=== PATIENT | female | born 1945 | race Caucasian/White ===

== ENCOUNTER 2021-03-29 15:56 | Inpatient (IN) | payer MEDICARE, MEDICAID ==
[~2021-03-29] VITALS: Ht 154.9 cm; Wt 80.3 kg
[2021-03-29] MEDS ORDERED: APIXABAN 5 MG TABLET PO STA (16:36)
[2021-03-29] MEDS ORDERED: DILTIAZEM HCL 5MG/ML 5ML VIAL IV ONE (16:45)
[2021-03-29 17:28] LABS: HEMATOCRIT. 43.7 % (36.0-48.0); HEMOGLOBIN. 14.4 g/dL (12.0-16.0); MEAN CORPUSCULAR HEMOGLOBIN 31.5 pg (28.0-32.0); MEAN CORPUSCULAR VOLUME 95.4 fL (81.0-99.0); MEAN PLATELET VOLUME 9.2 fl (7.4-10.4); PLATELET 308 x1000/uL (130-400); RED BLOOD CELL COUNT 4.58 mill/uL (4.2-5.4); RED CELL DISTRIBUTION WIDTH 13.8 % (11.6-14.6)
[2021-03-29] MEDS ORDERED: FUROSEMIDE 40MG/4ML VIAL IVP NR (18:00)
[2021-03-29] MEDS ORDERED: DILTIAZEM HCL 120MG CAPSULE CD 24HR PO NR (18:00)
[2021-03-29 18:23] LABS: PLATELET ESTIMATE NORMAL
[2021-03-29 18:26] LABS: CHLORIDE 100 mEq/L (98-107)
[2021-03-29] MEDS ORDERED: GUAIFENESIN 200MG/10ML SUGAR FREE UDC PO PRN (18:30)
[2021-03-29] MEDS ORDERED: IPRATROPIUM/ALBUTEROL 0.5-3(2.5)MG/3ML NEB HHN PRN (18:30)
[2021-03-29] MEDS ORDERED: DOCUSATE SODIUM 100MG CAPSULE PO PRN (18:30)
[2021-03-29] MEDS ORDERED: TRAMADOL 50MG TABLET PO PRN (18:30)
[2021-03-29] MEDS ORDERED: ACETAMINOPHEN 325MG TABLET PO PRN (18:30)
[2021-03-29] MEDS ORDERED: NALOXONE HCL 0.4MG/ML VIAL IV PRN (18:45)
[2021-03-29] MEDS ORDERED: DEXTROSE 50% WATER 50ML SYRINGE IV PRN (18:45)
[2021-03-29] MEDS ORDERED: METOPROLOL TARTRATE 25MG TABLET PO SCH (20:00)
[2021-03-29] MEDS ORDERED: BLOOD SUGAR DIAGNOSTIC STRIP TEST SCH (21:00)
[2021-03-29] MEDS ORDERED: INSULIN LISPRO 100 UNITS/ML SUBCUT SCH (21:00)
[2021-03-29 22:55] VITALS: BP 136/78
[2021-03-30] MEDS ORDERED: ATEN-42 MT (07:05)
[2021-03-30] MEDS ORDERED: ENALAPRIL (07:05)
[2021-03-30] MEDS ORDERED: FURO20TA4 MT (07:07)
[2021-03-30] MEDS ORDERED: APIX2.5T MT (07:07)
[2021-03-30] MEDS ORDERED: APIX5TAB MT (07:07)
[2021-03-30 07:21] LABS: BASOPHILS % 0.4 % (0.0-2.0); EOSINOPHILS % 0.8 % (0.0-5.0); HEMATOCRIT. 42.2 % (36.0-48.0); LYMPHOCYTES % 7.8 % (20.0-50.0); MEAN CORPUSCULAR HEMOGLOBIN 31.6 pg (28.0-32.0); MEAN CORPUSCULAR VOLUME 95.5 fL (81.0-99.0); MEAN PLATELET VOLUME 9.1 fl (7.4-10.4); MONOCYTES % 13.1 % (2.0-8.0); NEUTROPHILS % 77.9 % (40.0-76.0); PLATELET 293 x1000/uL (130-400); RED BLOOD CELL COUNT 4.42 mill/uL (4.2-5.4); RED CELL DISTRIBUTION WIDTH 13.6 % (11.6-14.6)
[2021-03-30 08:00] VITALS: BP 113/60
[2021-03-30] MEDS ORDERED: APIXABAN 5 MG TABLET PO SCH (09:00)
[2021-03-30] MEDS ORDERED: ASPIRIN 81MG EC TABLET PO SCH (09:00)
[2021-03-30] MEDS ORDERED: METOPROLOL TARTRATE 50MG TABLET PO SCH (09:00)
[2021-03-30 12:00] VITALS: BP 111/63
[2021-03-30] MEDS: METOPROLOL TARTRATE 25MG TABLET PO SCH ×2 (13:14→21:51)
[2021-03-30] MEDS: AMLODIPINE 2.5MG TABLET PO SCH (13:14)
[2021-03-30] MEDS: PIPERACILLIN/TAZOBACTAM 3.375 G in DEXTROSE 5% WATER 50 ML IV SCH ×3 (14:00→21:51)
[2021-03-30] MEDS: DIGOXIN 500MCG/2ML AMP IV PRN (14:50)
[2021-03-30] MEDS: APIXABAN 5 MG TABLET PO SCH (15:34)
[2021-03-30 16:00] VITALS: BP 110/68
[2021-03-30 20:00] VITALS: BP 146/88
[2021-03-31] VITALS: BP 130/78
[2021-03-31 04:00] VITALS: BP 145/80
[2021-03-31] MEDS: PIPERACILLIN/TAZOBACTAM 3.375 G in DEXTROSE 5% WATER 50 ML IV SCH ×3 (05:58→22:04)
[2021-03-31 07:57] LABS: CHLORIDE 100 mEq/L (98-107)
[2021-03-31 08:00] VITALS: BP 123/85
[2021-03-31 08:05] LABS: BASOPHILS % 0.3 % (0.0-2.0); EOSINOPHILS % 1.1 % (0.0-5.0); HEMATOCRIT. 41.9 % (36.0-48.0); HEMOGLOBIN. 14.2 g/dL (12.0-16.0); LYMPHOCYTES % 7.1 % (20.0-50.0); MEAN CORPUSCULAR HEMOGLOBIN 32.4 pg (28.0-32.0); MEAN CORPUSCULAR VOLUME 95.9 fL (81.0-99.0); MEAN PLATELET VOLUME 9.2 fl (7.4-10.4); NEUTROPHILS % 79.5 % (40.0-76.0); PLATELET 293 x1000/uL (130-400); RED BLOOD CELL COUNT 4.37 mill/uL (4.2-5.4); RED CELL DISTRIBUTION WIDTH 13.4 % (11.6-14.6)
[2021-03-31] MEDS: APIXABAN 5 MG TABLET PO SCH (09:58)
[2021-03-31] MEDS: AMLODIPINE 2.5MG TABLET PO SCH (09:58)
[2021-03-31] MEDS: METOPROLOL TARTRATE 25MG TABLET PO SCH ×2 (09:59→20:46)
[2021-03-31 12:00] VITALS: BP 119/69
[2021-03-31] MEDS: ONDANSETRON HCL 4MG/2ML INJ IV PRN (14:16)
[2021-03-31 16:00] VITALS: BP 128/80
[2021-03-31] MEDS: APIXABAN 2.5 MG TABLET PO SCH ×2 (17:00→18:59)
[2021-03-31 20:00] VITALS: BP 134/69
[2021-04-01] VITALS: BP 144/81
[2021-04-01 04:00] VITALS: BP 137/82
[2021-04-01] MEDS: PIPERACILLIN/TAZOBACTAM 3.375 G in DEXTROSE 5% WATER 50 ML IV SCH ×3 (06:10→21:49)
[2021-04-01 06:23] LABS: BASOPHILS % 0.3 % (0.0-2.0); EOSINOPHILS % 0.8 % (0.0-5.0); HEMATOCRIT. 46.1 % (36.0-48.0); HEMOGLOBIN. 15.5 g/dL (12.0-16.0); LYMPHOCYTES % 11.2 % (20.0-50.0); MEAN CORPUSCULAR HEMOGLOBIN 32.1 pg (28.0-32.0); MEAN CORPUSCULAR VOLUME 95.8 fL (81.0-99.0); MONOCYTES % 12.4 % (2.0-8.0); NEUTROPHILS % 75.3 % (40.0-76.0); PLATELET 346 x1000/uL (130-400); RED BLOOD CELL COUNT 4.82 mill/uL (4.2-5.4); RED CELL DISTRIBUTION WIDTH 13.6 % (11.6-14.6)
[2021-04-01 08:00] VITALS: BP 128/80
[2021-04-01] MEDS: FUROSEMIDE 40MG/4ML VIAL IVP SCH (10:32)
[2021-04-01] MEDS: APIXABAN 2.5 MG TABLET PO SCH ×2 (10:33→17:00)
[2021-04-01] MEDS: AMLODIPINE 2.5MG TABLET PO SCH (10:33)
[2021-04-01] MEDS: METOPROLOL TARTRATE 25MG TABLET PO SCH ×2 (10:33→20:29)
[2021-04-01 12:00] VITALS: BP 134/68
[2021-04-01 16:00] VITALS: BP 134/75
[2021-04-01 20:00] VITALS: BP 117/72
[2021-04-02] VITALS: BP 149/68
[2021-04-02 04:00] VITALS: BP 138/89
[2021-04-02] MEDS: PIPERACILLIN/TAZOBACTAM 3.375 G in DEXTROSE 5% WATER 50 ML IV SCH ×3 (05:29→22:26)
[2021-04-02 08:00] VITALS: BP 129/75
[2021-04-02] MEDS: ONDANSETRON HCL 4MG/2ML INJ IV PRN (09:30)
[2021-04-02] MEDS: FUROSEMIDE 40MG/4ML VIAL IVP SCH (09:30)
[2021-04-02] MEDS: AMLODIPINE 2.5MG TABLET PO SCH ×2 (09:33→17:16)
[2021-04-02] MEDS: APIXABAN 2.5 MG TABLET PO SCH ×2 (09:33→17:16)
[2021-04-02] MEDS: METOPROLOL TARTRATE 25MG TABLET PO SCH ×2 (09:34→20:31)
[2021-04-02 12:00] VITALS: BP 113/71
[2021-04-02 16:00] VITALS: BP 128/78
[2021-04-02 20:00] VITALS: BP 105/72
[2021-04-03] VITALS: BP 130/70
[2021-04-03] MEDS: DIGOXIN 500MCG/2ML AMP IV PRN (00:15)
[2021-04-03 04:00] VITALS: BP 154/78
[2021-04-03] MEDS: PIPERACILLIN/TAZOBACTAM 3.375 G in DEXTROSE 5% WATER 50 ML IV SCH ×2 (06:36→13:49)
[2021-04-03 08:00] VITALS: BP 138/92
[2021-04-03] MEDS: FUROSEMIDE 40MG/4ML VIAL IVP SCH (09:00)
[2021-04-03] MEDS: APIXABAN 2.5 MG TABLET PO SCH (09:01)
[2021-04-03] MEDS: METOPROLOL TARTRATE 25MG TABLET PO SCH ×2 (09:01→20:11)
[2021-04-03] MEDS: AMLODIPINE 2.5MG TABLET PO SCH ×2 (09:01→17:56)
[2021-04-03 09:47] LABS: HEMATOCRIT. 44.2 % (36.0-48.0); HEMOGLOBIN. 14.7 g/dL (12.0-16.0); MEAN CORPUSCULAR HEMOGLOBIN 31.9 pg (28.0-32.0); MEAN CORPUSCULAR VOLUME 95.8 fL (81.0-99.0); MEAN PLATELET VOLUME 8.6 fl (7.4-10.4); PLATELET 348 x1000/uL (130-400); RED BLOOD CELL COUNT 4.62 mill/uL (4.2-5.4); RED CELL DISTRIBUTION WIDTH 13.5 % (11.6-14.6)
[2021-04-03] MEDS ORDERED: DIGOXIN 500MCG/2ML AMP IV SCH (10:30)
[2021-04-03] MEDS ORDERED: METOPROLOL TARTRATE 25MG TABLET PO NR (10:45)
[2021-04-03 12:00] VITALS: BP 138/67
[2021-04-03] MEDS ORDERED: DIGOXIN 500MCG/2ML AMP IV PRN (13:00)
[2021-04-03 16:00] VITALS: BP 132/72
[2021-04-03 17:10] LABS: PLATELET ESTIMATE NORMAL
[2021-04-03 20:00] VITALS: BP 129/52
[2021-04-04] VITALS (7 sets, daily range): BP systolic 103–154; BP diastolic 58–89
[2021-04-04] MEDS: AMLODIPINE 2.5MG TABLET PO SCH (08:06)
[2021-04-04] MEDS: METOPROLOL TARTRATE 25MG TABLET PO SCH ×2 (08:06→20:13)
[2021-04-04] MEDS: FUROSEMIDE 40MG/4ML VIAL IVP SCH (12:34)
[2021-04-04 13:01] LABS: HEMATOCRIT. 44.4 % (36.0-48.0); HEMOGLOBIN. 14.7 g/dL (12.0-16.0); MEAN CORPUSCULAR HEMOGLOBIN 31.5 pg (28.0-32.0); MEAN CORPUSCULAR VOLUME 94.9 fL (81.0-99.0); MEAN PLATELET VOLUME 8.8 fl (7.4-10.4); PLATELET 336 x1000/uL (130-400); RED BLOOD CELL COUNT 4.68 mill/uL (4.2-5.4); RED CELL DISTRIBUTION WIDTH 13.2 % (11.6-14.6)
[2021-04-04 13:18] LABS: T4 FREE 1.28 ng/dL (0.76-1.46)
[2021-04-04 13:42] LABS: PLATELET ESTIMATE NORMAL
[2021-04-05 04:00] VITALS: BP 130/79
[2021-04-05 07:32] LABS: HEMATOCRIT. 44.8 % (36.0-48.0); HEMOGLOBIN. 15.1 g/dL (12.0-16.0); MEAN CORPUSCULAR HEMOGLOBIN 32.1 pg (28.0-32.0); MEAN CORPUSCULAR VOLUME 95.2 fL (81.0-99.0); MEAN PLATELET VOLUME 8.6 fl (7.4-10.4); PLATELET 343 x1000/uL (130-400); RED BLOOD CELL COUNT 4.71 mill/uL (4.2-5.4); RED CELL DISTRIBUTION WIDTH 13.6 % (11.6-14.6)
[2021-04-05 08:00] VITALS: BP 128/86
[2021-04-05] MEDS: METOPROLOL TARTRATE 25MG TABLET PO SCH ×2 (09:23→20:40)
[2021-04-05] MEDS: FUROSEMIDE 40MG/4ML VIAL IVP SCH (09:23)
[2021-04-05 09:30] LABS: PLATELET ESTIMATE NORMAL
[2021-04-05 12:00] VITALS: BP 144/102
[2021-04-05] MEDS ORDERED: DIGOXIN 500MCG/2ML AMP IV NR (13:15)
[2021-04-05 16:00] VITALS: BP 101/75
[2021-04-05 16:51] LABS: INR 1.4; PROTHROMBIN TIME 14.4 sec (9.6-11.0)
[2021-04-05 20:00] VITALS: BP 146/91
[2021-04-06] VITALS: BP 144/97
[2021-04-06 04:00] VITALS: BP 139/71
[2021-04-06 07:18] LABS: HEMATOCRIT. 45.4 % (36.0-48.0); HEMOGLOBIN. 15.3 g/dL (12.0-16.0); MEAN CORPUSCULAR HEMOGLOBIN 31.9 pg (28.0-32.0); MEAN CORPUSCULAR VOLUME 94.6 fL (81.0-99.0); MEAN PLATELET VOLUME 8.8 fl (7.4-10.4); PLATELET 326 x1000/uL (130-400); RED BLOOD CELL COUNT 4.79 mill/uL (4.2-5.4); RED CELL DISTRIBUTION WIDTH 13.5 % (11.6-14.6)
[2021-04-06 07:25] LABS: INR 1.2; PROTHROMBIN TIME 13.1 sec (9.6-11.0)
[2021-04-06] MEDS ORDERED: SODIUM BICARBONATE 4% (2.4MEQ) 5ML VIAL IV ONE (07:51)
[2021-04-06 08:00] VITALS: BP 119/86
[2021-04-06] MEDS ORDERED: DIGOXIN 500MCG/2ML AMP IV SCH (09:00)
[2021-04-06 09:10] LABS: CHLORIDE 96 mEq/L (98-107)
[2021-04-06 09:39] LABS: DIGOXIN 1.7 ng/mL (0.9-2.0)
[2021-04-06] MEDS: FUROSEMIDE 40MG/4ML VIAL IVP SCH (09:50)
[2021-04-06] MEDS: METOPROLOL TARTRATE 25MG TABLET PO SCH ×2 (09:51→20:55)
[2021-04-06 12:00] VITALS: BP 120/68
[2021-04-06 14:42] LABS: PLATELET ESTIMATE NORMAL
[2021-04-06 16:00] VITALS: BP 118/57
[2021-04-06] MEDS: DIGOXIN 500MCG/2ML AMP IV SCH (18:09)
[2021-04-06 20:00] VITALS: BP 117/72
[2021-04-07] VITALS: BP 142/80
[2021-04-07 04:00] VITALS: BP 114/72
[2021-04-07 08:00] VITALS: BP 125/56
[2021-04-07 09:02] LABS: BASOPHILS % 0.3 % (0.0-2.0); EOSINOPHILS % 0.1 % (0.0-5.0); HEMATOCRIT. 48.3 % (36.0-48.0); LYMPHOCYTES % 7.1 % (20.0-50.0); MEAN CORPUSCULAR HEMOGLOBIN 31.6 pg (28.0-32.0); MEAN CORPUSCULAR VOLUME 95.3 fL (81.0-99.0); MEAN PLATELET VOLUME 9.1 fl (7.4-10.4); MONOCYTES % 10.2 % (2.0-8.0); NEUTROPHILS % 82.3 % (40.0-76.0); PLATELET 351 x1000/uL (130-400); RED BLOOD CELL COUNT 5.07 mill/uL (4.2-5.4); RED CELL DISTRIBUTION WIDTH 13.6 % (11.6-14.6)
[2021-04-07] MEDS: FUROSEMIDE 40MG/4ML VIAL IVP SCH (10:12)
[2021-04-07] MEDS: METOPROLOL TARTRATE 25MG TABLET PO SCH ×2 (10:13→21:41)
[2021-04-07 12:00] VITALS: BP 103/61
[2021-04-07] MEDS: ASPIRIN 81MG TABLET PO SCH (13:35)
[2021-04-07] MEDS: DOCUSATE SODIUM 250MG CAPSULE PO PRN (13:47)
[2021-04-07] MEDS: DIGOXIN 500MCG/2ML AMP IV SCH (18:41)
[2021-04-07 20:00] VITALS: BP 140/63
[2021-04-08] VITALS: BP 138/66
[2021-04-08] MEDS ORDERED: ENOXAPARIN 80MG/0.8ML SYR SUBCUT SCH (03:00)
[2021-04-08 04:00] VITALS: BP 107/58
[2021-04-08 07:10] LABS: HEMATOCRIT. 45.6 % (36.0-48.0); HEMOGLOBIN. 15.4 g/dL (12.0-16.0); MEAN CORPUSCULAR HEMOGLOBIN 31.8 pg (28.0-32.0); MEAN CORPUSCULAR VOLUME 94.1 fL (81.0-99.0); MEAN PLATELET VOLUME 9.4 fl (7.4-10.4); PLATELET 318 x1000/uL (130-400); RED BLOOD CELL COUNT 4.85 mill/uL (4.2-5.4); RED CELL DISTRIBUTION WIDTH 13.9 % (11.6-14.6)
[2021-04-08] MEDS: FUROSEMIDE 40MG/4ML VIAL IVP SCH (07:59)
[2021-04-08] MEDS: METOPROLOL TARTRATE 25MG TABLET PO SCH ×2 (07:59→22:04)
[2021-04-08] MEDS: ASPIRIN 81MG TABLET PO SCH (07:59)
[2021-04-08 08:00] VITALS: BP 124/81
[2021-04-08 12:00] VITALS: BP 119/77
[2021-04-08 16:00] VITALS: BP 135/46
[2021-04-08] MEDS: PANTOPRAZOLE SODIUM 40 MG/VIAL IV SCH (17:11)
[2021-04-08] MEDS: DIGOXIN 500MCG/2ML AMP IV SCH (17:11)
[2021-04-08 18:40] LABS: PLATELET ESTIMATE NORMAL
[2021-04-08 20:00] VITALS: BP 111/75
[2021-04-09] VITALS (8 sets, daily range): BP systolic 115–142; BP diastolic 53–95
[2021-04-09 06:13] LABS: HEMATOCRIT. 45.8 % (36.0-48.0); HEMOGLOBIN. 15.5 g/dL (12.0-16.0); MEAN CORPUSCULAR HEMOGLOBIN 31.7 pg (28.0-32.0); MEAN CORPUSCULAR VOLUME 93.4 fL (81.0-99.0); MEAN PLATELET VOLUME 9.5 fl (7.4-10.4); PLATELET 319 x1000/uL (130-400); RED CELL DISTRIBUTION WIDTH 13.9 % (11.6-14.6)
[2021-04-09 06:52] LABS: INR 1.3; PARTIAL THROMBOPLASTIN TIME 31.8 sec (23.4-31.0); PROTHROMBIN TIME 13.5 sec (9.6-11.0)
[2021-04-09 06:53] LABS: CHLORIDE 95 mEq/L (98-107)
[2021-04-09 07:39] LABS: DIGOXIN 4.6 ng/mL (0.9-2.0)
[2021-04-09] MEDS ORDERED: HEPARIN SODIUM 1,000 UNIT/1ML VIAL IV ONE (08:20)
[2021-04-09] MEDS: FUROSEMIDE 40MG/4ML VIAL IVP SCH (09:00)
[2021-04-09] MEDS: METOPROLOL TARTRATE 25MG TABLET PO SCH ×2 (09:00→21:55)
[2021-04-09] MEDS: PANTOPRAZOLE SODIUM 40 MG/VIAL IV SCH (09:00)
[2021-04-09] MEDS: ASPIRIN 81MG TABLET PO SCH (09:00)
[2021-04-09] MEDS ORDERED: IODIXANOL 320MG/ML 100 ML BOTTLE IV ONE (09:25)
[2021-04-09] MEDS ORDERED: LIDOCAINE HCL 1% 30ML VIAL (10MG/ML) ONE (09:25)
[2021-04-09] MEDS ORDERED: MIDAZOLAM HCL 2 MG/2 ML VIAL ONE (10:01)
[2021-04-09] MEDS ORDERED: FENTANYL CITRATE/PF 50MCG/ML 2ML VIAL ONE (10:01)
[2021-04-09] MEDS ORDERED: ATROPINE SULFATE 1MG/10ML SYR IV PRN (11:00)
[2021-04-09 16:38] LABS: PLATELET ESTIMATE NORMAL
[2021-04-10] VITALS (11 sets, daily range): BP systolic 98–124; BP diastolic 47–77
[2021-04-10 07:03] LABS: HEMATOCRIT. 45.6 % (36.0-48.0); HEMOGLOBIN. 15.1 g/dL (12.0-16.0); MEAN CORPUSCULAR HEMOGLOBIN 31.3 pg (28.0-32.0); MEAN CORPUSCULAR VOLUME 94.2 fL (81.0-99.0); MEAN PLATELET VOLUME 9.9 fl (7.4-10.4); PLATELET 317 x1000/uL (130-400); RED BLOOD CELL COUNT 4.84 mill/uL (4.2-5.4); RED CELL DISTRIBUTION WIDTH 13.9 % (11.6-14.6)
[2021-04-10] MEDS: ASPIRIN 81MG TABLET PO SCH (09:40)
[2021-04-10] MEDS: PANTOPRAZOLE SODIUM 40 MG/VIAL IV SCH (09:40)
[2021-04-10] MEDS: METOPROLOL TARTRATE 25MG TABLET PO SCH ×2 (09:41→22:02)
[2021-04-10] MEDS: ENOXAPARIN 80MG/0.8ML SYR SUBCUT SCH (10:00)
[2021-04-10] MEDS ORDERED: SODIUM POLYSTYRENE SULFONATE 15 G/60 ML BOT PO NR (11:00)
[2021-04-10] MEDS ORDERED: LACTULOSE 20G/30ML UDC PO PRN (12:15)
[2021-04-10] MEDS: BISACODYL 5MG TABLET PO SCH (12:21)
[2021-04-10] MEDS ORDERED: DEXT 5%/0.9% NACL 1,000 ML IV SCH (12:45)
[2021-04-10 13:03] LABS: PLATELET ESTIMATE NORMAL
[2021-04-10 13:26] LABS: INR 1.3; PROTHROMBIN TIME 13.3 sec (9.6-11.0)
[2021-04-10] MEDS: ACETAMINOPHEN 325MG TABLET PO PRN ×2 (15:59→22:01)
[2021-04-11] VITALS (8 sets, daily range): BP systolic 96–134; BP diastolic 47–95
[2021-04-11 06:11] LABS: BASOPHILS % 0.2 % (0.0-2.0); EOSINOPHILS % 0.2 % (0.0-5.0); HEMATOCRIT. 50.6 % (36.0-48.0); HEMOGLOBIN. 16.8 g/dL (12.0-16.0); LYMPHOCYTES % 7.4 % (20.0-50.0); MEAN CORPUSCULAR HEMOGLOBIN 31.2 pg (28.0-32.0); MEAN CORPUSCULAR VOLUME 94.1 fL (81.0-99.0); MONOCYTES % 8.5 % (2.0-8.0); NEUTROPHILS % 83.7 % (40.0-76.0); PLATELET 334 x1000/uL (130-400); RED BLOOD CELL COUNT 5.38 mill/uL (4.2-5.4); RED CELL DISTRIBUTION WIDTH 13.9 % (11.6-14.6)
[2021-04-11] MEDS: METOPROLOL TARTRATE 25MG TABLET PO SCH ×2 (09:00→21:56)
[2021-04-11] MEDS: FAMOTIDINE 20MG/2ML VIAL IV SCH (09:01)
[2021-04-11] MEDS: BISACODYL 5MG TABLET PO SCH (09:02)
[2021-04-11] MEDS: ASPIRIN 81MG TABLET PO SCH (09:02)
[2021-04-11] MEDS: ENOXAPARIN 80MG/0.8ML SYR SUBCUT SCH (09:02)
[2021-04-11] MEDS ORDERED: NALOXONE HCL 0.4MG/ML VIAL IV PRN (12:15)
[2021-04-11] MEDS: DEXT 5%/0.9% NACL 1,000 ML IV SCH (14:32)
[2021-04-11] MEDS: HYDROMORPHONE HCL/PF 2MG/ML CPJ IV PRN (16:20)
[2021-04-12] VITALS (9 sets, daily range): BP systolic 94–125; BP diastolic 44–73
[2021-04-12] MEDS: HYDROMORPHONE HCL/PF 2MG/ML CPJ IV PRN ×3 (03:30→20:26)
[2021-04-12] MEDS: DEXT 5%/0.9% NACL 1,000 ML IV SCH ×2 (05:40→19:44)
[2021-04-12 06:47] LABS: HEMATOCRIT. 46.8 % (36.0-48.0); HEMOGLOBIN. 15.5 g/dL (12.0-16.0); MEAN CORPUSCULAR HEMOGLOBIN 31.3 pg (28.0-32.0); MEAN CORPUSCULAR VOLUME 94.6 fL (81.0-99.0); MEAN PLATELET VOLUME 9.9 fl (7.4-10.4); PLATELET 333 x1000/uL (130-400); RED BLOOD CELL COUNT 4.94 mill/uL (4.2-5.4); RED CELL DISTRIBUTION WIDTH 14.1 % (11.6-14.6)
[2021-04-12] MEDS ORDERED: SODIUM POLYSTYRENE SULFONATE 15 G/60 ML BOT PO NR (09:00)
[2021-04-12] MEDS: METOPROLOL TARTRATE 25MG TABLET PO SCH ×2 (10:25→20:26)
[2021-04-12] MEDS: BISACODYL 5MG TABLET PO SCH (10:25)
[2021-04-12] MEDS: ASPIRIN 81MG TABLET PO SCH (10:25)
[2021-04-12] MEDS: FAMOTIDINE 20MG/2ML VIAL IV SCH (10:25)
[2021-04-12] MEDS: ENOXAPARIN 80MG/0.8ML SYR SUBCUT SCH (10:25)
[2021-04-12 19:09] LABS: PLATELET ESTIMATE NORMAL
[2021-04-13] VITALS (19 sets, daily range): BP systolic 73–170; BP diastolic 33–104
[2021-04-13 06:37] LABS: HEMATOCRIT. 45.5 % (36.0-48.0); MEAN CORPUSCULAR HEMOGLOBIN 31.5 pg (28.0-32.0); MEAN CORPUSCULAR VOLUME 95.4 fL (81.0-99.0); MEAN PLATELET VOLUME 9.9 fl (7.4-10.4); PLATELET 261 x1000/uL (130-400); RED BLOOD CELL COUNT 4.77 mill/uL (4.2-5.4); RED CELL DISTRIBUTION WIDTH 14.1 % (11.6-14.6)
[2021-04-13] MEDS: BISACODYL 5MG TABLET PO SCH (09:00)
[2021-04-13] MEDS: DEXT 5%/0.9% NACL 1,000 ML IV SCH ×2 (09:04→19:27)
[2021-04-13] MEDS: FAMOTIDINE 20MG/2ML VIAL IV SCH (09:39)
[2021-04-13] MEDS: METOPROLOL TARTRATE 25MG TABLET PO SCH ×2 (09:40→18:46)
[2021-04-13] MEDS: ENOXAPARIN 80MG/0.8ML SYR SUBCUT SCH (09:40)
[2021-04-13] MEDS: ASPIRIN 81MG TABLET PO SCH (09:40)
[2021-04-13] MEDS: HYDROMORPHONE HCL/PF 2MG/ML CPJ IV PRN (10:13)
[2021-04-13] MEDS ORDERED: SODIUM BICARBONATE 8.4% 1 MEQ/ML 50ML SYR IV NR (10:30)
[2021-04-13] MEDS ORDERED: LIDOCAINE HCL 1% 30ML VIAL (10MG/ML) ONE (11:15)
[2021-04-13] MEDS ORDERED: SODIUM POLYSTYRENE SULFONATE 15 G/60 ML BOT PO NR (12:00)
[2021-04-13] MEDS ORDERED: INSULIN REGULAR (HUMULIN R) 300UNITS/3ML VIAL IV NR (14:15)
[2021-04-13] MEDS ORDERED: DEXTROSE 50% WATER 50ML SYRINGE IV NR (14:15)
[2021-04-13 14:44] LABS: PLATELET ESTIMATE NORMAL
[2021-04-13] MEDS ORDERED: VASOPRESSIN 20 UNIT in SODIUM CHLORIDE 0.9% 99 ML IV PRN (15:45)
[2021-04-13] MEDS ORDERED: DOCUSATE SODIUM 100MG CAPSULE PO SCH (17:00)
[2021-04-13] MEDS ORDERED: SODIUM BICARBONATE 8.4% 1 MEQ/ML 50ML SYR IV PRN (17:00)
[2021-04-13 18:23] LABS: HEPATITIS B SURFACE ANTIGEN NEGATIVE
[2021-04-13] MEDS: DOCUSATE SODIUM 250MG CAPSULE PO PRN (18:50)
[2021-04-13] MEDS: METOCLOPRAMIDE HCL 10MG/2ML VIAL IV SCH ×2 (18:50→23:16)
[2021-04-13] MEDS: ACETAMINOPHEN 325MG TABLET PO PRN (18:51)
[2021-04-13] MEDS: MORPHINE SULFATE 2 MG/ML CPJ (NOT FOR IM USE) IV PRN ×2 (20:24→23:19)
[2021-04-13] MEDS ORDERED: SENNOSIDES 8.6MG TABLET PO PRN (21:00)
[2021-04-13 21:39] LABS: INR 1.8; PROTHROMBIN TIME 18.6 sec (9.6-11.0)
[2021-04-13] MEDS ORDERED: LACTULOSE 20G/30ML UDC PO SCH (22:00)
[2021-04-13] MEDS ORDERED: FUROSEMIDE 100MG/10ML VIAL IVP NR (23:40)
[2021-04-13] MEDS ORDERED: FUROSEMIDE 40MG/4ML VIAL ONE (23:54)
== END 2021-04-14 00:08 | DRG 286 ==
LOC: ER 15:56 → 8WST 18:19 → ENRESERV 21:35 → 8WST 04-03 20:57 → 3WST 04-09 11:42
PROVIDERS: ADMIT Internal Medicine; ATTEND Internal Medicine
PROC: 4B02XTZ Measurement of Cardiac Defibrillator, External Approach (ICD-10-PCS; 2021-04-02)
PROC: 0W993ZZ Drainage of Right Pleural Cavity, Percutaneous Approach (ICD-10-PCS; 2021-04-06)
PROC: 4A023N8 Measurement of Cardiac Sampling and Pressure, Bilateral, Percutaneous Approach (ICD-10-PCS; principal; 2021-04-09)
PROC: B2111ZZ Fluoroscopy of Multiple Coronary Arteries using Low Osmolar Contrast (ICD-10-PCS; 2021-04-09)
PROC: 0W993ZZ Drainage of Right Pleural Cavity, Percutaneous Approach (ICD-10-PCS; 2021-04-10)
PROC: 02HV33Z Insertion of Infusion Device into Superior Vena Cava, Percutaneous Approach (ICD-10-PCS; 2021-04-12)
PROC: B518ZZA Fluoroscopy of Superior Vena Cava, Guidance (ICD-10-PCS; 2021-04-12)
PROC: B548ZZA Ultrasonography of Superior Vena Cava, Guidance (ICD-10-PCS; 2021-04-12)
PROC: 5A1D70Z Performance of Urinary Filtration, Intermittent, Less than 6 Hours Per Day (ICD-10-PCS; 2021-04-13)
PROC: 02HV33Z Insertion of Infusion Device into Superior Vena Cava, Percutaneous Approach (ICD-10-PCS; 2021-04-13)
PROC: B518ZZA Fluoroscopy of Superior Vena Cava, Guidance (ICD-10-PCS; 2021-04-13)
PROC: B548ZZA Ultrasonography of Superior Vena Cava, Guidance (ICD-10-PCS; 2021-04-13)
PROC: 5A12012 Performance of Cardiac Output, Single, Manual (ICD-10-PCS; 2021-04-14)
PROC: 5A2204Z Restoration of Cardiac Rhythm, Single (ICD-10-PCS; 2021-04-14)
PROC: 0BH17EZ Insertion of Endotracheal Airway into Trachea, Via Natural or Artificial Opening (ICD-10-PCS; 2021-04-14)
DX: I13.0 Hypertensive heart and chronic kidney disease with heart failure and stage 1 through stage 4 chronic kidney disease, or unspecified chronic kidney disease (principal); J18.9 Pneumonia, unspecified organism; I50.43 Acute on chronic combined systolic (congestive) and diastolic (congestive) heart failure; J96.01 Acute respiratory failure with hypoxia; E87.1 Hypo-osmolality and hyponatremia; I48.19 Other persistent atrial fibrillation; N17.9 Acute kidney failure, unspecified; J91.8 Pleural effusion in other conditions classified elsewhere; J44.0 Chronic obstructive pulmonary disease with (acute) lower respiratory infection; E72.20 Disorder of urea cycle metabolism, unspecified; I47.2 Ventricular tachycardia; I42.9 Cardiomyopathy, unspecified; E78.1 Pure hyperglyceridemia; E78.5 Hyperlipidemia, unspecified; I27.20 Pulmonary hypertension, unspecified; I44.7 Left bundle-branch block, unspecified; I25.10 Atherosclerotic heart disease of native coronary artery without angina pectoris; E03.9 Hypothyroidism, unspecified; R91.8 Other nonspecific abnormal finding of lung field; E87.5 Hyperkalemia; R31.0 Gross hematuria; D75.1 Secondary polycythemia; I46.9 Cardiac arrest, cause unspecified; R59.0 Localized enlarged lymph nodes; R33.9 Retention of urine, unspecified; D49.511 Neoplasm of unspecified behavior of right kidney; N18.9 Chronic kidney disease, unspecified; K81.9 Cholecystitis, unspecified; E11.22 Type 2 diabetes mellitus with diabetic chronic kidney disease; K76.0 Fatty (change of) liver, not elsewhere classified; K82.8 Other specified diseases of gallbladder; E66.9 Obesity, unspecified; R00.1 Bradycardia, unspecified; E78.00 Pure hypercholesterolemia, unspecified; Z20.822 Contact with and (suspected) exposure to COVID-19; K83.8 Other specified diseases of biliary tract; Z79.01 Long term (current) use of anticoagulants; Z87.891 Personal history of nicotine dependence; I25.2 Old myocardial infarction; Z95.810 Presence of automatic (implantable) cardiac defibrillator; Z86.711 Personal history of pulmonary embolism; Z87.01 Personal history of pneumonia (recurrent); Z79.899 Other long term (current) drug therapy; Z68.33 Body mass index [BMI] 33.0-33.9, adult; N28.89 Other specified disorders of kidney and ureter; R19.7 Diarrhea, unspecified; I34.0 Nonrheumatic mitral (valve) insufficiency; I07.1 Rheumatic tricuspid insufficiency; I35.0 Nonrheumatic aortic (valve) stenosis
CPT/HCPCS: 32555; 36415; 36556; 36573; 71045; 71250; 74018; 74176; 76700; 76705; 76937; 77001; 80048; 80053; 80061; 80076; 80162; 82140; 82962; 83036; 83615; 83735; 83880; 83986; 84145; 84439; 84443; 84484; 85025; 85044; 85379; 86705; 86709; 86803; 87340; 87426; 88108; 93005; 93306; 93460; 93970; 99285; C1725; C1752; C1760; C1769; C1887; C1893; C9113; J1160; J1170; J1642; J1644; J1650; J1815; J1940; J2250; J2270; J2405; J2543; J2765; J3010; J3490; J7040; J7042; J7060; Q9967